=== PATIENT | male | born 1945 | race Caucasian/White ===

== ENCOUNTER 2018-04-07 07:28 | Observation (INO) | payer MEDICARE, OTHER ==
[~2018-04-07] VITALS: Ht 190.5 cm; Wt 125.0 kg
[~2018-04-07 07:28] MED LIST: ALOGLIPTIN PO; ASPIR 8181 MG PO; ATENOLOL50 MG PO; CENTRUM SILVER1 EAC3 PO; CLOPIDOGREL75 MG PO; COQ-10100 MG PO; GLIMEPIRIDE4 MG PO; ISOSORBIDE MONO30 MG PO; MELOXICAM15 MG PO; METFORMIN HCL500 MG PO; METOPROLOL SUCC25 MG PO; NEXIUM PO; PIOGLITAZONE30 MG PO; QUINAPRIL HCL40 MG PO
--- OUTSIDE RECORDS SUMMARY | 2018-04-07 07:31 | XMS REPORT | Clinical Summary ---
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 Hospital Radiology Encounter Nacho Middleton MD Hematuria syndrome (Primary Dx) 01/04/2018 Transcribe Access Orders Dane Morris MD Basal cell carcinoma of skin of nose (Primary Dx) 10/01/2017 Transcribe Dermatology Orders Dane Morris MD SCC (squamous cell carcinoma), scalp/neck (Primary Dx) 05/19/2017 Transcribe Dermatology Orders after 04/06/2017 Social History Date Tobacco Use Types Packs/Day Years Used Never Assessed Sex Assigned at Date Recorded Not on file Industry Job Start Date Occupation Not on file Not on file Not on file Travel End Travel History Travel Start No recent travel history available. Last Filed Vital Signs Not on file Plan of Treatment Health Maintenance Due Date Last Done Comments COLON CANCER SCREENING 11/16/1997 SHINGLES VACCINES ( of 11/16/1997 2) PNEUMOCOCCAL 11/16/2012 POLYSACCHARIDE VACCINE AGE 65 AND OVER PNEUMOCOCCAL-13 11/16/2012 INFLUENZA VACCINE 10/14/2017 Procedures Comments Procedure Name Priority Date/Time Associated Diagnosis CT ABDOMEN PELVIS W Routine 01/06/2018 Hematuria syndrome CONTRAST 1:57 PM CDT ESTIMATED GFR Routine 01/06/2018 1:39 PM CDT POC CREATININE Routine 01/06/2018 1:39 PM CDT after 04/06/2017 Results * CT Abdomen Pelvis W Contrast (01/06/2018 1:57 PM CDT) Narrative Performed At EXAMINATION:CT ABDOMEN PELVIS W CONTRAST RADIANT CLINICAL HISTORY:R31.9 Hematuriaunspecified, r31.9 TECHNIQUE: Multiple axial images of the abdomen and pelvis were obtained following intravenous administration of iodinated contrast. Sagittal and coronal computerized reformatted images were also obtained. CT imaging was performed with iterative reconstruction technique and/or automated exposure control to reduce radiation dose. COMPARISON:None. FINDINGS: Abdomen: Heart size is within normal limits.. Lung bases demonstrate right chest wall deformity and right pleural fat. Left lung base is unremarkable. Liver is fatty. Gallbladder is unremarkable.. Spleen, pancreas, and adrenals are within normal limits. A small to moderate-sized wedge-shaped area of mild hypoattenuation is seen in the posterior left upper pole of the kidney which may reflect pyelonephritis or infarction. The abdominal aorta is atherosclerotic.. Appendix is unremarkable. Pelvis: There is no enlarged pelvic lymph node.Bladder is unremarkable.Bones are age appropriate.The distal sigmoid colon is collapsed but the wall appears slightly prominent. This is probably due to its collapsed state but some wall thickening such as that related to colitis cannot be entirely excluded. Recommend clinical correlation. IMPRESSION: Finding compatible with mild pyelonephritis or ischemia/infarction in the upper pole left kidney. Questionable distal colonic wall thickening. Hepatic steatosis. [facility]-[id number] Procedure Note Interface, Radiology Results Incoming - 01/06/2018 2:26 PM CDT EXAMINATION: CT ABDOMEN PELVIS W CONTRAST CLINICAL HISTORY: R31.9 Hematuria unspecified, r31.9 TECHNIQUE: Multiple axial images of the abdomen and pelvis were obtained following intravenous administration of iodinated contrast. Sagittal and coronal computerized reformatted images were also obtained. CT imaging was performed with iterative reconstruction technique and/or automated exposure control to reduce radiation dose. COMPARISON: None. FINDINGS: Abdomen: Heart size is within normal limits.. Lung bases demonstrate right chest wall deformity and right pleural fat. Left lung base is unremarkable. Liver is fatty. Gallbladder is unremarkable.. Spleen, pancreas, and adrenals are within normal limits. A small to moderate-sized wedge-shaped area of mild hypoattenuation is seen in the posterior left upper pole of the kidney which may reflect pyelonephritis or infarction. The abdominal aorta is atherosclerotic.. Appendix is unremarkable. Pelvis: There is no enlarged pelvic lymph node. Bladder is unremarkable. Bones are age appropriate. The distal sigmoid colon is collapsed but the wall appears slightly prominent. This is probably due to its collapsed state but some wall thickening such as that related to colitis cannot be entirely excluded. Recommend clinical correlation. IMPRESSION: Finding compatible with mild pyelonephritis or ischemia/infarction in the upper pole left kidney. Questionable distal colonic wall thickening. Hepatic steatosis. [facility]-[id number] Performing Organization Address City/State/Zipcode Phone Number [facility] [address] [place] [address] * Estimated GFR (01/06/2018 1:39 PM CDT) Estimated GFR 86 mL/min/1.73 m2 [facility] DEPARTMENT OF Comment: PATHOLOGY AND CatergoryUnitsInte GENOMIC MEDICINE rpretation G1 >=90 Normal or high G2 60-89Mildly decreased [id number] Mildly to moderately decreased [id number] Moderately to severely decreased G4 15-29Severely decreased G5 <15Kidney failure The eGFR was calculated using the Chronic Kidney Disease Epidemiology Collaboration (CKD-EPI) equation. Interpretation is based on recommendations of the National Kidney Foundation-Kidney Disease Outcomes Quality Initiative (NKF-KDOQI) published in 2014. Specimen Blood Performing Organization Address [facility] Phone Number [facility] DEPARTMENT [address] [address] PATHOLOGY AND GENOMIC MEDICINE * POC creatinine (01/06/2018 1:39 PM CDT) POC creatinine 0.9 0.7 - 1.2 mg/dl [facility] DEPARTMENT OF Comment: PATHOLOGY AND Meter ID: [id number] GENOMIC MEDICINE Vending Attendant: Zoey Jordan Specimen Blood Performing Organization Address City/[facility]/Zipcode Phone Number [facility] DEPARTMENT OF [address] [facility] [place] [address] PATHOLOGY AND GENOMIC MEDICINE after 04/06/2017 Insurance Payer Benefit Subscriber ID Type Phone Address Plan / Group MEDICARE MEDICARE xxxxxxxxxxx Medicare [place], [place] PART A AND B [facility]LY [facility] MED xxxxxxxxxxxx Commercial SUPPLEMENT Advance Directives Patient has advance care planning documents on file. For more information, danni eugene contact: Ok Felipe [address] [facility] [address]
[2018-04-07] MEDS ORDERED: HYOSCYAMINE 0.125 MG TAB ONE (07:49)
[2018-04-07] MEDS ORDERED: LEVOFLOXACIN 500MG/D5W 100ML 100 ML IV ONE (07:49)
[2018-04-07] MEDS ORDERED: HYDRALAZINE HCL 20 MG/ML VIAL ONE (10:59)
--- NOTE | 2018-04-07 11:47 | Operative Report ---
DATE OF PROCEDURE: April 07, 2018 PREOPERATIVE DIAGNOSES 1. Benign prostatic hypertrophy. 2. History of carcinoma of the lung. POSTOPERATIVE DIAGNOSES 1. Benign prostatic hypertrophy. 2. History of carcinoma of the lung. OPERATIONS 1. Cystourethroscopy. 2. Transrectal ultrasound of the prostate. 3. Urethral dilation with the Whitley sounds. HARDENER HELPER: Dr. Kwok. ANESTHETIC: General. Mr. Montesinos is a 72-year-old male who presented with the chief complaint of lower urinary tract obstructive symptoms. Rectal exam showed an enlarged prostate gland, about 70 to 80 g firm and benign. His PSA was normal. This patient was placed on the table in the lithotomy position and was prepped and draped in a sterile manner after satisfactory anesthesia. A #23 cystoresectoscope was used and a cystourethroscopy was performed and confirmed the previous cystoscopic findings. The XPS Laserscope generator was then started, starting at 120 perez vaporization level and 40 perez coagulation level. Vaporization of the prostate was then started at 12 o'clock position, vaporizing the anterior tissue. Vaporization was then started, starting at 11 o'clock to 7 o'clock, starting at the bladder neck to just proximal to the verumontanum and down to the capsular fibers. Hemostasis was obtained all through and was very adequate. Vaporization of the prostate was then started, starting again from 1 o'clock to 5 o'clock, again starting at the bladder neck to just proximal to the verumontanum and down to the capsular fibers. Hemostasis was obtained all through and was very adequate. At the termination of the procedure, it was noted that the bladder mucosa, both ureteral orifices and the external sphincter were intact without any laser energy damage. The Laserscope generator was shut down. The cystoresectoscope was removed, and a #22-[place] Naqvi catheter was placed on mild traction. Estimated blood loss was about 25 to 30 mL. Job#: [id number] SONIA
[2018-04-07] MEDS ORDERED: FENTANYL CITRATE/PF 100MCG/2 ML INJ ONE ×2 (11:52→18:14)
--- OUTSIDE RECORDS SUMMARY | 2018-04-07 11:56 | XMS REPORT | Clinical Summary ---
Author Author [facility] Address Unknown Phone Unavailable Care Team Providers Care Geodetic Advisor Name Role Phone Ramiro Middleton MD PCP [...] Questionable distal colonic wall thickening. Hepatic steatosis. [facility]-[id number] Procedure Note Interface, Radiology Results Incoming - [...] Questionable distal colonic wall thickening. Hepatic steatosis. [facility]-[id number] Performing Organization Address City/State/Zipcode Phone Number [facility] [address] [place] [address] * Estimated GFR (01/06/2018 1:39 PM CDT) Estimated GFR 86 mL/min/1.73 m2 [facility] [place] Comment: PATHOLOGY AND CatergoryUnitsInte GENOMIC MEDICINE rpretation G1 >=90 Normal or high G2 60-89Mildly decreased G6e65-22 Mildly to moderately decreased I2t51-01 Moderately to severely decreased G4 15-29Severely decreased G5 <15Kidney failure The eGFR was calculated using the Chronic Kidney Disease Epidemiology Collaboration (CKD-EPI) equation. Interpretation is based on recommendations of the National Kidney Foundation-Kidney Disease Outcomes Quality Initiative (NKF-KDOQI) published in 2014. Specimen Blood Performing Organization Address [facility] Phone Number [facility] [address] [address] PATHOLOGY AND GENOMIC MEDICINE * POC creatinine (01/06/2018 1:39 PM CDT) POC creatinine 0.9 0.7 - 1.2 mg/dl [facility] [place] Comment: PATHOLOGY AND Meter ID: [id number] GENOMIC MEDICINE Asphalt Coater: Zoey Jordan Specimen Blood Performing Organization Address City/[facility]/Zipcode Phone Number [facility] [place] [place] [address] [place] [address] PATHOLOGY AND GENOMIC MEDICINE after 04/06/2017 Insurance Payer Benefit Subscriber ID Type Phone Address Plan / Group MEDICARE MEDICARE xxxxxxxxxxx Medicare [place], [place] PART A AND B [facility] MED xxxxxxxxxxxx Commercial SUPPLEMENT Advance Directives Patient has advance care planning documents on file. For more information, danni eugene contact: Ok Felipe [address] [place] [address]
[2018-04-07] MEDS ORDERED: MORPHINE SULFATE INJ 4 MG/ML INJ 1ML ONE (13:44)
[2018-04-07] MEDS ORDERED: ONDANSETRON HCL INJ 2MG/ML 2ML 2 MG/ML VIAL IV PRN (14:30)
[2018-04-07] MEDS: SODIUM CHLORIDE 0.9% 1000ML 1,000 ML IV SCH ×2 (14:30→22:30)
[2018-04-07] MEDS ORDERED: ACETAMINOPHEN 325 MG TAB PO PRN (14:30)
[2018-04-07] MEDS ORDERED: HYDROMORPHONE 1MG/1ML INJ IV PRN (14:30)
[2018-04-07 15:00] VITALS: BP 154/75
[2018-04-07] MEDS ORDERED: HYDROMORPHONE 2MG/ML 2 MG/ML ML IV PRN (15:00)
[2018-04-07] MEDS ORDERED: NON-FORMULARY MEDICATION (Glimepiride 4 MG) PO SCH (17:00)
[2018-04-07] MEDS: (Ubidecarenone (Coq-10) 100 MG) PO SCH (17:00)
[2018-04-07 17:08] VITALS: BP 194/84
[2018-04-07] MEDS: METFORMIN HCL 500 MG TAB PO SCH (17:28)
[2018-04-07] MEDS: GLIMEPIRIDE 2 MG TAB PO SCH (17:28)
[2018-04-07] MEDS: ATENOLOL 50 MG TAB PO SCH (17:28)
[2018-04-07] MEDS ORDERED: LIDOCAINE HCL 2% LOCAL INJ 5 ML SDV VIAL INJ ONE (17:45)
[2018-04-07] MEDS ORDERED: DEXAMETHASONE SOD PHOS INJ 4 MG/ML VIAL ONE (17:45)
[2018-04-07] MEDS ORDERED: ONDANSETRON HCL INJ 2MG/ML 2ML 2 MG/ML VIAL ONE (17:45)
[2018-04-07] MEDS ORDERED: ACETAMINOPHEN 1000 MG/100 ML IV ONE (17:45)
[2018-04-07] MEDS ORDERED: PROPOFOL IV EMULSION 10 MG/ML 20 ML VIAL ONE (17:45)
[2018-04-07] MEDS ORDERED: SEVOFLURANE INHAL SOLN 250 ML PEN BTL ONE (17:45)
[2018-04-07] MEDS ORDERED: MIDAZOLAM HCL 2 MG/2 ML VIAL ONE (18:14)
--- NOTE | 2018-04-07 19:00 | NUR ---
received report from day nurse. patient is resting comfortably in bed. patient continues on continuous bladder irrigation. sim is hanging from bedside. sim is patent and urine is flowing into bag. bed is in lowest position and call light is within reach. will continue to monitor patient.
[2018-04-07 19:23] VITALS: BP 194/84
--- NOTE | 2018-04-07 19:56 | NUR ---
PATIENT HAS AN ELEVATED BLOOD PRESSURE. ATTEMPTED TO PAGE DOCTOR. UNABLE TO GET THROUGH. WILL CONTINUE TO PAGE DOCTOR.
[2018-04-07 20:00] VITALS: BP 215/93
--- NOTE | 2018-04-07 20:15 | NUR ---
RETURNED CALL. RECEIVED ORDER TO GIVE ALL BLOOD PRESSURE MEDICATIONS. WILL CONTINUE TO MONITOR PATIENT.
[2018-04-07] MEDS: ISOSORBIDE MONONITRATE 30 MG TAB CR PO SCH (20:26)
[2018-04-07] MEDS: QUINAPRIL HCL 20 MG TAB PO SCH (20:26)
[2018-04-08] VITALS (7 sets, daily range): BP systolic 150–186; BP diastolic 67–85
--- NOTE | 2018-04-08 | NUR ---
Automated blood pressure machines are giving high blood pressure readings. patient's blood pressure is being rechecked with manual blood pressure cuff. manual blood pressure readings are lower than automated cuff readings. will continue to monitor patient's blood pressure.
--- NOTE | 2018-04-08 04:00 | NUR ---
automated blood pressure cuff gave a reading of 209/79. patient's blood pressure was checked manually and found to be 170/68. will continue to monitor patient's blood pressure.
--- NOTE | 2018-04-08 06:00 | NUR ---
patient's blood pressure has been rechecked manually and found to be 140/63. patient is lying in bed. no complaints of distress noted. bed is in lowest position. will continue to monitor patient.
--- NOTE | 2018-04-08 07:01 | NUR ---
report given to day nurse. patient is resting comfortably in bed. bed is in lowest position and call light is within reach.
[2018-04-08] MEDS ORDERED: PANTOPRAZOLE SOD 40 MG TABEC PO SCH (07:30)
[2018-04-08] MEDS: (Ubidecarenone (Coq-10) 100 MG) PO SCH (08:37)
[2018-04-08] MEDS: ISOSORBIDE MONONITRATE 30 MG TAB CR PO SCH (08:43)
[2018-04-08] MEDS: ATENOLOL 50 MG TAB PO SCH (08:43)
[2018-04-08] MEDS: METFORMIN HCL 500 MG TAB PO SCH (08:44)
[2018-04-08] MEDS: GLIMEPIRIDE 2 MG TAB PO SCH (08:44)
[2018-04-08] MEDS: QUINAPRIL HCL 20 MG TAB PO SCH (08:44)
[2018-04-08] MEDS ORDERED: NON-FORMULARY MEDICATION (Quinapril Hcl 40 MG) PO SCH (09:00)
[2018-04-08] MEDS ORDERED: MULTIVITAMINS/MINERALS TAB PO SCH (09:00)
[2018-04-08] MEDS ORDERED: LEVOFLOXACIN 500MG/D5W 100ML 100 ML IV SCH (09:00)
[2018-04-08] MEDS ORDERED: NEXIUM PO SCH (09:00)
[2018-04-08] MEDS ORDERED: NON-FORMULARY MEDICATION (Meloxicam 15 MG) PO SCH (09:00)
[2018-04-08] MEDS ORDERED: MELOXICAM 7.5 MG TAB PO SCH (09:00)
[2018-04-08] MEDS ORDERED: CLOPIDOGREL BISULFATE 75 MG TAB PO SCH (09:00)
[2018-04-08] MEDS ORDERED: PIOGLITAZONE HCL 30 MG PO SCH (09:00)
[2018-04-08] MEDS ORDERED: PIOGLITAZONE HCL 15 MG TAB PO SCH (09:00)
[2018-04-08] MEDS ORDERED: ASPIRIN 81 MG CHEW TAB PO SCH (09:00)
[2018-04-08] MEDS: SODIUM CHLORIDE 0.9% 1000ML 1,000 ML IV SCH ×2 (10:07→14:30)
--- NOTE | 2018-04-08 10:42 | NUR ---
SOCIAL WORK INITIAL ASSESSMENT Certified Paralegal to bedside to discuss plan of care with patient/family. CM/SW role and care transitions discussed. Anticipated discharge plan discussed along with duration of care. CM/SW discussed patients right to make decisions in care. CM/SW work hours given. Patient lives: IN HOUSE WITH FAMILY Admit/Transfer: VIA ED FROM HOME POA/Emergency contact: KATHERINE VENTURA [phone] Current/Previous Home Health: NONE PCP/Follow-up Care: ROBERT Current/Previous DME: NONE Other Services: NONE Employment Status: NONE Areas of Concerns: NONE Referral Needs: NONE Education Needs: NONE IMM/[place] given and signed (if applicable): [place] Goal for discharge: RETURN HOME INDEPENDENTLY CM/SW left business card at the bedside with contact information. Name and number was also written on the patients whiteboard. Patient verbalized understanding of discussion. CM will follow-up with ongoing discharge and transition of care needs.
--- NOTE | 2018-04-08 19:07 | NUR ---
pt remained stable throughout shift, dc orders placed. cont irrigation dc. pt provided with leg bag and fc instructions. ed to contact md if difficulty with urinating.
== END 2018-04-08 19:06 | disposition home or self-care (01) ==
LOC: OR 07:28 → PACU V 11:08 → IMCU 14:05
PROVIDERS: ADMIT Specialist; ATTEND Specialist
DX: N40.1 Benign prostatic hyperplasia with lower urinary tract symptoms (principal); N13.8 Other obstructive and reflux uropathy; Z85.118 Personal history of other malignant neoplasm of bronchus and lung; I10 Essential (primary) hypertension; E11.9 Type 2 diabetes mellitus without complications; Z79.84 Long term (current) use of oral hypoglycemic drugs
CPT/HCPCS: 36415 ×2; 52648; 82948 ×2; 93005; G0378 ×2; J0131; J0360; J1100; J1170; J1956 ×2; J2001; J2250; J2270; J2405; J2704; J7030; S0164